=== PATIENT | male | born 1990 | race Asian ===

== ENCOUNTER 2023-03-09 07:18 | Day surgery (SDC) | payer OTHER ==
[~2023-03-09] VITALS: Ht 177.8 cm; Wt 86.2 kg
[2023-03-09] MEDS ORDERED: LIDOCAINE 1% 10 MG/ML, 20 ML MDV ONE (08:00)
[2023-03-09] MEDS ORDERED: ceFAZolin SODIUM 2 GM VIAL ONE (08:00)
[2023-03-09] MEDS ORDERED: BUPIVACAINE /PF 0.25% 30 ML VIAL INJ ONE (08:00)
[2023-03-09] MEDS ORDERED: KETOROLAC TROMETHAMINE 30 MG VIAL ONE (08:00)
[2023-03-09] MEDS ORDERED: NS IRRIG SOLN 1000 ML IR ONE (08:00)
[2023-03-09] MEDS ORDERED: LR 1,000 ML IV SCH (08:45)
[2023-03-09] MEDS ORDERED: KETOROLAC TROMETHAMINE 30 MG VIAL IVP PRN (08:45)
[2023-03-09] MEDS ORDERED: ONDANSETRON HCL 4 MG/2 ML VIAL IVP PRN (08:45)
[2023-03-09 13:49] VITALS: BP_SYST 112
== END 2023-03-09 09:50 | disposition home or self-care (01) ==
LOC: SDS 07:18 → SMU 07:18 → SDS 09:50
PROVIDERS: ATTEND Orthopaedic Surgery Sports Medicine
DX: L02.512 Cutaneous abscess of left hand (principal); L03.012 Cellulitis of left finger; K21.9 Gastro-esophageal reflux disease without esophagitis; S62.617D Displaced fracture of proximal phalanx of left little finger, subsequent encounter for fracture with routine healing; S62.615D Displaced fracture of proximal phalanx of left ring finger, subsequent encounter for fracture with routine healing; X58.XXXD Exposure to other specified factors, subsequent encounter
CPT/HCPCS: 11760 ×2; 11000; 88304; J3490; J1885; J2001